=== PATIENT | female | born 1965 | race Caucasian/White ===

== ENCOUNTER 2018-10-23 12:44 | Emergency (ER) | payer BC ==
[2018-10-23] MEDS ORDERED: NS 0.9% 1000 ML** 1,000 ML IV ONE ×2 (14:58→15:08)
[2018-10-23] MEDS ORDERED: Ketorolac INJ* 30 MG/ML 1 ML VIAL IV PUSH ONE (15:09)
[2018-10-23] MEDS ORDERED: Famotidine IV* 10 MG/ML 2 ML (20 mg) IV SLOW PU ONE (15:09)
[2018-10-23] MEDS ORDERED: Ondansetron INJ* 2 MG/ML VIAL IV ONE (15:09)
--- NOTE | 2018-10-23 15:14 | ED ---
Complex/Multi-Sys Presentation - HPI Summary HPI Summary: 53 year old F presenting to [facility] with a chief complaint of nausea, vomiting brown emesis, diarrhea since 05:00 today. Symptoms aggravated by nothing. Symptoms alleviated by nothing. Patient reports intermittent abdominal cramping. Sx have improved since this am. Patient urinated normally this morning. Patient denies hematemesis, black stools, bloody stools, fever, back pain, rash. Patient states that nausea began at 05:00 today then patient began vomiting every 15 minutes and having diarrhea. Patient states that the nausea, vomiting, and diarrhea resolved around 11:00 today but she still didn't feel right so she decided to come to the ED. While in the waiting room, patient had nausea but no vomiting. Patient states that had diarrhea for 2 days last week. She states that her daughter vomited 3 times 4 days ago. Patient states she ate an undercooked hamburger recently. Patient has been taking antibiotics recently. She was placed on clindamycin for an abscess in July/August 2018. She was placed on azithromycin last week for the abscess. No recent travel. No immunocompromised. Not . Patient is a stay at home mom. Patients medication reviewed this visit. - History Of Current Complaint Chief Complaint: EDNauseaVomitDiarrh Time Seen by Provider: 10/23/18 14:46 Hx Obtained From: Patient Onset/Duration: Lasting Hours - 05:00 today, Still Present Aggravating Factor(s): Nothing Alleviating Factor(s): Nothing Associated Signs And Symptoms: Positive: Other - intermittent abdominal cramping ; NEGATIVE: dysuria, hematemesis, black stools, bloody stools, fever, back pain , rash - Allergies/Home Medications Allergies/Adverse Reactions: Allergies Allergy/AdvReac Type Severity Reaction Status Date / Time No Known Allergies Allergy Verified 10/23/18 12:49 PMH/Surg Hx/FS Hx/Imm Hx Previously Healthy: Yes Endocrine/Hematology History: Denies: Hx Diabetes Respiratory History: Denies: Hx Chronic Obstructive Pulmonary Disease (COPD) - Cancer History Hx Chemotherapy: No Hx Radiation Therapy: No - Surgical History Surgery Procedure, Year, and Place: colonscopy. . 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 Lives: With Family Alcohol Use: Occasionally Alcohol Amount: 1 drink per week Hx Substance Use: No Substance Use Type: Reports: None Hx Tobacco Use: No Smoking Status (MU): Never Smoked Tobacco Review of Systems Constitutional: Negative Negative: Fever Gastrointestinal: Negative - hematemesis, black stools, bloody stools Positive: Vomiting, Diarrhea, Nausea, Other - abdominal cramping Musculoskeletal: Negative - back pain Negative: Rash All Other Systems Reviewed And Are Negative: Yes Physical Exam - Summary Physical Exam Summary: Vital Signs Reviewed: Yes A+Ox3, no distress Eyes: Conjunctiva Clear, JANICE. EOM intact and full ENT: Hearing grossly normal TM x 2 clear, mmoist, uvula midline, no exudate, no erythema Neck: Positive: Supple Respiratory: Positive: No respiratory distress, No accessory muscle use + CTA throughout no w/r Cardiovascular: RRR nl s1, s2 no m/r CBT <2 sec abd soft + mild diffuse edema - no guarding, no rebound + increased BS No distended Musculoskeletal Exam: RODRIGUEZ x 4 without difficulty Strength Intact, ROM Intact Neurological: Positive: Alert, + sensation throughout Psychological: Positive: Normal Response To supervisor frame sample and pattern Skin: Positive: no rash, no ecchymosis Triage Information Reviewed: Yes Vital Signs On Initial Exam: Initial Vitals Temp Pulse Resp BP Pulse Ox 99.4 F 97 19 164/94 100 10/23/18 12:45 10/23/18 12:45 10/23/18 12:45 10/23/18 12:45 10/23/18 12:45 Vital Signs Reviewed: Yes Diagnostics - Vital Signs Vital Signs Temp Pulse Resp BP Pulse Ox 10/23/18 12:45 99.4 F 97 19 164/94 100 - Laboratory Result Diagrams: 10/23/18 15:31 10/23/18 15:31 Lab Statement: Any lab studies that have been ordered have been reviewed, and results considered in the medical decision making process. Re-Evaluation - Re-Evaluation First Eval Re-Evaluation Time: 16:15 Change: Improved - Patient is pain free, nausea free, requesting a popsicle labs reviewed - non concerning -await urinalysis Second Eval Re-Evaluation Time: 17:42 Change: Improved - patient feels well and has no nausea, she ate the popsicle, she is agreeable to discharge, she will be discharged stool sample given Rx zofran clears to bland return precautions Complex Multi-Symp Course/Dx Course Of Treatment: Pt with 12 hours of n/v/d Started with n/v at 5am, had several episodes of explosive diarrhea - none of eaithe x 1 hours -still with nausea and intermittent cramping. Pt states feesl dehydrated had undercooked hamburger last evening. Pt is on erythromycin from PCP No trave. VSS. mild diffuse tenderness. will check labs. pepcid/zofran/toradol and reassess. Repeat BP improved - Diagnoses Provider Diagnoses: Nausea & vomiting, Diarrhea Discharge - Sign-Out/Discharge Documenting (check all that apply): Patient Departure - Discharge Patient Received Moderate/Deep Sedation with Procedure: No - Discharge Plan Condition: Stable Disposition: HOME Prescriptions: Ondansetron ODT TAB* [Zofran 4 MG Odt TAB*] 4 mg PO Q4H PRN #10 tab.odt PRN Reason: Nausea Patient Education Materials: Acute Nausea and Vomiting (ED), Acute Diarrhea (ED ) Referrals: Arnaldo Curiel MD [Primary Care Provider] - Additional Instructions: - For the first 6 hours, eat and drink clears (water, pablo parveen, soup broth, jello, popsicles, Gatorade). If you tolerate this okay, add bland foods such as dry toast, scrambled eggs, crackers. Wait until you are feeling better for 24 hours before eating spicy food, acidic food, tomato based food, fried food. - okay to take medications as prescribed for nausea - your stool has been sent for additional testing - if you need any changes in treatment, you will receive a call from a care seam steamer This may take 3-4 days - get plenty of restful sleep - if your symptoms persist or you have any other questions or concenrs, contact your doctor to schedule a follow-up appointment next week - Billing Disposition and Condition Condition: STABLE Disposition: Home - Attestation Statements Document Initiated by Scribe: Yes Documenting Scribe: Marge Greene Provider For Whom Shawneeibe is Documenting (Include Credential): Pauline Reynolds MD Scribe Attestation: IMarge, scribed for Pauline Reynolds MD on 10/23/18 at 1827. Scribe Documentation Reviewed: Yes Provider Attestation: The documentation as recorded by the scribe, Marge Greene accurately reflects the service I personally performed and the decisions made by me, Pauline Reynolds MD Status of Scribe Document: Viewed
[2018-10-23 15:38] LABS: ABS Lymphocytes 0.5 10^3/ul (1.0-4.8); ABS Monocytes 0.3 10^3/ul (0-0.8); ABS Neutrophils 10.8 10^3/ul (1.5-7.7); Hematocrit 40 % (35-47); Hemoglobin 13.6 g/dL (12.0-16.0); Lymphocyte % 3.9 %; Mean Corpuscular HGB Conc 34 g/dL (31-36); Mean Corpuscular Hemoglobin 30 pg (27-31); Mean Corpuscular Volume 89 fL (80-97); Mean Platelet Volume 8.3 fL (7.4-10.4); Platelet Count 232 10^3/uL (150-450); Red Cell Distribution Width 13 % (10-15); White Blood Count 11.7 10^3/uL (3.5-10.8)
[2018-10-23 16:00] LABS: Albumin 4.7 g/dL (3.2-5.2); Albumin/Globulin Ratio 1.5 (1-3); BUN/Creatinine Ratio 26.3 (8-20); Calcium 9.8 mg/dL (8.6-10.3); EGFR African American 90.8 (>60); Globulin 3.1 g/dL (2-4); Magnesium 2.1 mg/dL (1.9-2.7); Potassium 4.4 mmol/L (3.5-5.0); Total Bilirubin 0.7 mg/dL (0.2-1.0); Total Protein 7.8 g/dL (6.4-8.9)
[2018-10-23 17:44] LABS: Urine Appearance Cloudy; Urine Bacteria Absent (Absent); Urine Bilirubin Negative (Negative); Urine Blood 2+ (Negative); Urine Color Yellow; Urine Glucose Negative (Negative); Urine Ketones 1+ (Negative); Urine Nitrite Negative (Negative); Urine Protein Negative (Negative); Urine Red Blood Cell Trace(0-2/hpf) (Absent); Urine Specific Gravity 1.023 (1.010-1.030); Urine Squamous Epithelial Cell Present (Absent); Urine Urobilinogen Negative (Negative); Urine White Blood Cell Trace(0-5/hpf) (Absent)
[2018-10-23 18:01] VITALS: BP 116/83
--- NOTE | 2018-10-26 18:37 | ED ---
Progress - Progress Note Progress Note: Pt is feeling much better since d/c but is still having diarrhea and still taking erythromycin for a dental infection which was the origin of her chain of symptoms. She has not noticed gage hematochezia but will watch. Her stool cx's are neg but stool occult blood was positive - she is aware of this finding and although it was probably triggered by excessive diarrhea, she will f/u w/ PCP. I also do not see a c. diff for stool ordered - spoke w/ Rosemary in [facility] and she notified me that sample is no longer available. Pt aware she needs to f/u w / her PCP for this test - she is also aware c. diff is contagious and is not self-limiting. She will monitor contacts for sx and have them checked as well as needed. And finally, she is aware of danger s/sx of when to return to ED. Dental infection seems to be fine and she has 1 dose left of erythromycin - advised to stop this medication and if dental sx are worse, to f/u w/ dentist. She is also aware of appropriate probiotics to take in the meantime. Re-Evaluation - Re-Evaluation First Eval Re-Evaluation Time: 16:15 Change: Improved - Patient is pain free, nausea free, requesting a popsicle labs reviewed - non concerning -await urinalysis Second Eval Re-Evaluation Time: 17:42 Change: Improved - patient feels well and has no nausea, she ate the popsicle, she is agreeable to discharge, she will be discharged stool sample given Rx zofran clears to bland return precautions Course/Dx - Course Course Of Treatment: Pt with 12 hours of n/v/d Started with n/v at 5am, had several episodes of explosive diarrhea - none of eaithe x 1 hours -still with nausea and intermittent cramping. Pt states feesl dehydrated had undercooked hamburger last evening. Pt is on erythromycin from PCP No trave. VSS. mild diffuse tenderness. will check labs. pepcid/zofran/toradol and reassess. Repeat BP improved - Diagnoses Provider Diagnoses: Nausea & vomiting, Diarrhea Discharge - Sign-Out/Discharge Documenting (check all that apply): Post-Discharge Follow Up Patient Received Moderate/Deep Sedation with Procedure: No - Discharge Plan Condition: Stable Disposition: HOME Prescriptions: Ondansetron ODT TAB* [Zofran 4 MG Odt TAB*] 4 mg PO Q4H PRN #10 tab.odt PRN Reason: Nausea Patient Education Materials: Acute Nausea and Vomiting (ED), Acute Diarrhea (ED ) Referrals: Arnaldo Curiel MD [Primary Care Provider] - Additional Instructions: - For the first 6 hours, eat and drink clears (water, pablo parveen, soup broth, jello, popsicles, Gatorade). If you tolerate this okay, add bland foods such as dry toast, scrambled eggs, crackers. Wait until you are feeling better for 24 hours before eating spicy food, acidic food, tomato based food, fried food. - okay to take medications as prescribed for nausea - your stool has been sent for additional testing - if you need any changes in treatment, you will receive a call from a care senior engineering team leader This may take 3-4 days - get plenty of restful sleep - if your symptoms persist or you have any other questions or concenrs, contact your doctor to schedule a follow-up appointment next week - Billing Disposition and Condition Condition: STABLE Disposition: Home
== END 2018-10-23 18:01 | disposition home or self-care (01) ==
LOC: ED 12:44
DX: R11.2 Nausea with vomiting, unspecified (principal); R19.7 Diarrhea, unspecified
CPT/HCPCS: 36415; 80053; 81003; 81015; 82272; 83690; 83735; 85025; 87045; 87046; 87077; 87086; 87899; 96361; 96374; 96375; 99282; J1885; J2405